=== PATIENT | female | born 1980 | race Caucasian/White ===

== ENCOUNTER → 2021-09-28 09:39 | Outpatient (CLI) | payer OTHER, SELFPAY ==
[2021-09-28 20:00] LABS: Ferritin 14 ng/mL (6-137)
== END ==
PROVIDERS: PCP Physician Assistant
DX: Z34.80 Encounter for supervision of other normal pregnancy, unspecified trimester (principal); Z36.83 Encounter for fetal screening for congenital cardiac abnormalities; D64.9 Anemia, unspecified
CPT/HCPCS: 82728